=== PATIENT | female | born 1960 | race Caucasian/White ===

== ENCOUNTER 2018-08-07 05:34 | Day surgery (SDC) | payer OTHER ==
[2018-08-07] MEDS ORDERED: CEFAZOLIN 2 GM/50 ML (PMX) 50 ML IVPB (06:30)
[2018-08-07] MEDS: SOD CHLORIDE 0.9% 1,000 ML IV (06:36)
[2018-08-07] MEDS ORDERED: PROPOFOL 20 ML (07:37)
[2018-08-07] MEDS ORDERED: LIDOCAINE 2% (SDV) 5 ML INJ (07:37)
[2018-08-07] MEDS ORDERED: FENTAnyl 50 MCG/ML VIAL (07:37)
[2018-08-07] MEDS ORDERED: METOCLOPRAMIDE 10 MG INJ (07:37)
[2018-08-07] MEDS ORDERED: ONDANSETRON 4 MG INJ (07:37)
[2018-08-07] MEDS ORDERED: MEPERIDINE 25 MG INJ IV (08:00)
[2018-08-07] MEDS ORDERED: OXYCODONE/ACETAMINOPHEN (5/325) TAB PO ×2 (08:00)
[2018-08-07] MEDS ORDERED: FENTAnyl 50 MCG/ML VIAL IV ×3 (08:00)
[2018-08-07] MEDS ORDERED: ONDANSETRON 4 MG INJ IV (08:00)
[2018-08-07] MEDS: BUPIVACAINE 0.25% (MPF) 30 ML INJ (08:33)
[2018-08-07] MEDS: HYDROCODONE/APAP (5/325) TAB PO (09:40)
== END 2018-08-07 10:40 | disposition home or self-care (01) ==
LOC: SDS 05:34
DX: D17.21 Benign lipomatous neoplasm of skin and subcutaneous tissue of right arm (principal); E11.9 Type 2 diabetes mellitus without complications; I10 Essential (primary) hypertension; E78.5 Hyperlipidemia, unspecified; Z79.84 Long term (current) use of oral hypoglycemic drugs
CPT/HCPCS: 14000; 82962; 88307